=== PATIENT | male | born 2000 | race Caucasian/White ===

== ENCOUNTER 2023-04-05 13:53 | Outpatient (CLI) | payer OTHER, MEDICAID ==
--- NOTE | 2023-04-05 14:48 | SLEEP CARE CONSULTATION ---
Information from patient questionnaire entered by Natan Burrell. I have reviewed and concur with the information entered by Natan Burrell. This document represents the service I personally performed and the decisions made by me, Marisela Carpenter ARNP. History of Present Illness Service Date and Time: 04/05/2023 1353 Reason for Visit: New patient Chief Complaint: reports: Unrefreshed sleep, Snoring Date of Onset: 5YRS Usual bedtime: 10PM Time it takes to fall asleep: VARIES Snores at night: Yes Observed to quit breathing while asleep: Yes Number of times waking at night: 0 Reasons for waking at night: reports: Gasping for air (2-3 times) Toss, Turn, or Twitch while sleeping: No Recalls having dreams: No Usually gets out of bed at: 10AM Feels refreshed in the morning: No Morning headache: No Sleepy or fatigued during the day: Yes Ever fallen asleep while driving: No Takes day naps: Yes (day after long shift; 1-2 times a week; 2-4 hrs long) Dreams during day naps: No Prior sleep studies: Yes Year and Where: 2018 Additional HPI information: I had the pleasure of seeing MICHELE THOMAS today regarding the possibility of him having a sleep disorder. His current complaints are unrefreshed sleep and snoring. He states he had a sleep study back in [id number] and was diagnosed with moderate sleep apnea but he only tolerated the CPAP they started him on for about a month and he gave it back. 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 He is still having unrefreshed sleep, daytime fatigue and is snoring. He has woke up gasping for air about 3 times in the last several months. He comes back to look at options for treating his sleep apnea. 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 Patient is Single and lives in . Have you smoked in the past 12 months: No Years of smokin Quit date: 02/2022 Alcohol use: Yes Alcohol amount and frequency: 4 BEERS 5 DAYS A WEEK Caffeine use: Yes Caffeine amount and frequency: 1 REDBULL 1 A DAY Family History Family history of sleep disordered breathing: Yes Family Hx Sleep Apnea: Father: Snoring, Sleep apnea - Treated Allergies and Home Medications Known drug allergies: No Drug allergies reviewed: Yes Home medication list reviewed: Yes (no daily medications) Review of Systems Cardiovascular: denies: high blood pressure Gastrointestinal: denies: heartburn Neurological: denies: headaches Psychiatric: denies: anxiety, depression Ear/Nose/Throat: reports: nasal congestion. denies: tonsillectomy Immunologic: reports: sneezing Physical Exam Vital signs obtained and entered by: NATAN Vilchis MA Blood Pressure: 126/68 (LEFT ARM) Cuff size: regular Heart Rate: 55 O2 Saturation: 99 Height: 5 ft 6.5 in Weight: 149 lb 12.8 oz Body Mass Index: 23.8 BMI Classification: Normal Neck circumference: 14.75 Mouth and throat: narrow oropharynx Soft palate: long Hard palate: normal Uvula: normal Uvula visualization: 25% Mallampati Class III Tongue: enlarged in size with teeth barrera on lateral edges Tonsils: 1+ Neck: normal w/o lymphadenopathy or thyromegaly Heart: regular rate and rhythm Lungs: clear bilaterally Impression and Plan 1. Suspected Obstructive Sleep Apnea-Hypopnea Syndrome, as previously diagnosed and as suggested by a history of loud and irregular snoring, observed cessation of breath while asleep, gasping or choking in sleep, unrefreshed sleep, excessive daytime sleepiness and cognitive impairment. I recommend proceeding to polysomnography to confirm the diagnosis and to assess severity. If the patient has significant sleep disordered breathing, a manual CPAP titration study will also be performed to find the optimal treatment pressure. I informed the patient of what the sleep studies involve and after some discussion, obtained agreement to proceed. The pathophysiology of obstructive sleep apnea-hypopnea syndrome was discussed with the patient and health risks of cardiovascular and cerebrovascular disease if not treated. Risks of drowsy driving discussed in detail and patient advised to avoid long distance driving and to jawbone puller at the first sign of drowsiness. Patient agreed to plan. * Schedule polysomnography +- manual CPAP titration study and return in 1-2 weeks after the study to discuss result and initiate therapy. * Avoid long distance driving or driving when feeling sleepy. * Avoid alcohol, sedative and muscle relaxant around bedtime. * Attempt to lose weight. * Review instructions provided by trained office staff on how to prepare for the sleep study. * Return for follow-up after sleep study completed. Counseling Topics: Weight control Visit Type: In Office Time Spent with Patient (minutes): 30 Provider Statement: I spent 100% of the Face to Face Visit with the patient with greater than 50% spent counseling the patient and coordination of care.
[2023-04-05 14:54] VITALS: BP 126/68
== END 2023-04-05 13:54 | disposition home or self-care (01) ==
LOC: SC 13:53
PROVIDERS: ATTEND Nurse Practitioner Family
DX: G47.33 Obstructive sleep apnea (adult) (pediatric) (principal); Z87.891 Personal history of nicotine dependence
CPT/HCPCS: 99203; 99212

== ENCOUNTER 2023-05-30 13:38 | Outpatient (CLI) | payer OTHER, MEDICAID | END 2023-05-30 13:39 | disposition home or self-care (01) | LOC: SC 13:38 | PROVIDERS: ATTEND Nurse Practitioner Family | DX: G47.33 Obstructive sleep apnea (adult) (pediatric) (principal); R09.02 Hypoxemia | CPT/HCPCS: 95806 ==

== ENCOUNTER 2023-08-15 15:19 | Outpatient (CLI) | payer OTHER, MEDICAID ==
--- NOTE | 2023-08-15 14:43 | SLEEP CARE CONSULTATION ---
Information from patient questionnaire entered by Brenda Burrell. I have reviewed and concur with the information entered by Brenda Burrell. This document represents the service I personally performed and the decisions made by , Marisela Carpenter ARNP. History of Present Illness Service Date and Time: 08/15/2023 1420 Initial [place] Sleepiness Scale score: 6 (04/05/23) Current [place] Sleepiness Scale score: 8 (08/15/23) Additional HPI information: MICHELE THOMAS returns via video appointment for follow up and results of the recently performed home sleep study. The sleep study showed mild obstructive sleep apnea with an average AHI of 14.4 and mich oxygen saturation of 80%. I explained the pathophysiology behind obstructive sleep apnea. We then spent quite a bit of time discussing different treatment options. For mild obstructive sleep apnea, surgery and oral appliance are alternatives to nasal CPAP therapy but in moderate or severe cases, nasal CPAP is the most effective and reliable treatment. Because apnea is primarily in supine position, then positional management therapy could be effective. Methods discussed such as positioning with pillows, using a T-shirt with tennis balls in the back or commercial products that have a pillow format on back to prevent supine sleep. I reviewed the impact of weight changes on sleep apnea and strongly recommended losing weight. Patient was cautioned about risks of drowsy driving until sleepiness symptoms resolve. Sleep Study - Results Type of Sleep Study: Home sleep study (COMPLETED 05/31/23) Prior sleep studies: Yes Year and Where: 2018 Polysomnography/Home Sleep Study results: Physician Impression: The quality of the study is good. The length of the study is adequate (> 240 minutes). Please also see the tabulated and graphic data. 1. Obstructive Sleep Apnea-Hypopnea (ICD-10 G47.33), mild, with an AHI of 14.4 /hr and mich SaO2 of 80%. During the study, the patient had 20 apneas (20 obstructive, 0 central, 0 mixed) and 24 hypopneas. The longest episode lasted 209.0 seconds. The respiratory events occurred almost exclusively during supine sleep (supine AHI was 17.8 and non-supine, 1.57). 2. Hypoxemia (ICD-10 R09.02), mild, with the lowest oxygen saturation of 80 % and 114.8 minutes with SaO2 under 90%. Baseline oxygen saturation was normal (Average oxygen saturation was 91%). Allergies and Home Medications Known drug allergies: No Drug allergies reviewed: Yes Home medication list reviewed: Yes (no changes) Allergy and home medication list: Allergies No Known Drug Allergies Allergy (Verified 08/14/23 10:04) Review of Systems Review of systems same as previous: Yes (NO CHANGE) Physical Exam Vital signs obtained and entered by: BRENDA Vilchis MA Height: 5 ft 6 in (PER PT ) Weight: 150 lb (PER PT) Body Mass Index: 24.2 BMI Classification: Normal Impression and Plan 1. Obstructive Sleep Apnea-Hypopnea Syndrome, mild, with lowest oxygen saturation of 80%. Obviously this is the cause of the patients symptoms of unrefreshed sleep, and excessive daytime sleepiness. Since patients apnea is primarily in supine position, patient advised to try positional therapy and agreed with plan. He is also advised to lose weight as this will reduce snoring and apnea. An oral appliance can also be used for snoring but often is not covered by insurance. Follow up is scheduled for one month to check effectiveness and if further evaluation indicated such a repeat study in supine position only to see if additional treatment indicated. 2. Hypoxemia, mild, with a mich oxygen saturation of 80% and 114.8 minutes spent under 90%. The baseline oxygen saturation was normal with an average oxygen saturation of 91%. * Positional Therapy * Maintain healthy weight. * Avoid alcohol consumption near bedtime. * Avoid supine sleep. * The patient is again cautioned about driving until sleepiness completely resolves. * Return one month after starting positional therapy. I will assess response to therapy at that time. Counseling Topics: Sleeping position Follow up with Sleep Care in: 1-2 months (Positional Therapy) Visit Type: Telehealth Video Video Type: [employer] Patient Location: Car Location of Provider: Office Patient agrees and consents to this telehealth visit type: Yes Patient agrees to have their insurance billed: Yes Time Spent with Patient (minutes): 21 Provider Statement: I spent 100% of the Telehealth Video Call with the patient with greater than 50% spent counseling the patient and coordination of care.
== END 2023-08-15 15:20 | disposition home or self-care (01) ==
LOC: SC 15:19
PROVIDERS: ATTEND Nurse Practitioner Family
DX: G47.33 Obstructive sleep apnea (adult) (pediatric) (principal); R09.02 Hypoxemia